=== PATIENT | female | born 1990 | race Hispanic/Latino ===

== ENCOUNTER 2022-02-20 12:20 | Emergency (ER) | payer OTHER ==
[~2022-02-20] VITALS: Ht 160 cm; Wt 81.6 kg
[2022-02-20 12:22] VITALS: BP 108/49
[2022-02-20 13:20] LABS: APPEARANCE,URINE Clear (CLEAR); BILIRUBIN,URINE Negative (NEGATIVE); COLOR,URINE Yellow (YELLOW); GLUCOSE, URINE (UA) Negative (NEGATIVE); KETONES,URINE Negative (NEGATIVE); LEUKOCYTE ESTERASE ,URINE Negative (NEGATIVE); NITRATE,URINE Negative (NEGATIVE); OCCULT BLOOD,URINE Negative (NEGATIVE); PH,URINE 6.5 (5.0-8.0); PROTEIN,URINE Negative (NEGATIVE)
== END 2022-02-20 13:42 | disposition home or self-care (01) ==
LOC: EDH 12:20
DX: O98.512 Other viral diseases complicating pregnancy, second trimester (principal); J06.9 Acute upper respiratory infection, unspecified; Z20.822 Contact with and (suspected) exposure to COVID-19; Z3A.17 17 weeks gestation of pregnancy
CPT/HCPCS: 81003; 87635; 87804 ×2; 99283; C9803